=== PATIENT | male | born 1975 | race Caucasian/White ===

== ENCOUNTER 2019-03-02 21:36 | Emergency (ER) | payer OTHER ==
[~2019-03-02] VITALS: Ht 190.5 cm; Wt 104.5 kg
[~2019-03-02 21:36] MED LIST: LOTENSIN 1010 MG/TAB PO; NORCO 325 MG-51 TAB PO; ZOFRAN 4MG T4 MG/TAB PO; ZYLOPRIM 300MG300 MG PO
[2019-03-02 21:48] VITALS: TEMP 98.2
[2019-03-02] MEDS ORDERED: PERCOCET 325 MG1 TA2 PO (22:02)
[2019-03-02] MEDS ORDERED: ZOFRAN ODT8 MG PO (22:03)
[2019-03-02 22:33] LABS: BASO % 0.2 % (0.0-2.0); EOS # 0.1 (0.0-0.7); EOS % 1.1 % (0-4.0); GRAN # 6.3 (1.4-6.5); GRAN % 68.1 % (42.2-75.2); HEMATOCRIT 37.9 % (42.0-52.0); HEMOGLOBIN 13.7 g/dl (13.5-18.0); LYMPH # 2.2 (1.2-3.4); LYMPH % 24.1 % (20.0-51.0); MEAN CELL VOLUME 84 fl (80.0-100.0); MEAN CORPUSCULAR HEMOGLOBIN 30 pg (27.0-31.0); MEAN CORPUSCULAR HGB CONC 36 g/dl (33.0-37.0); MEAN PLATELET VOLUME 9.1 fl (7.4-10.4); MONO # 0.6 (0.1-0.6); MONO % 6.2 % (1.7-9.3); PLATELET COUNT 145 K/mm3 (130-400); RED BLOOD COUNT 4.52 M/mm3 (4.20-5.60); REDCELL DISTRIBUTION WIDTH-CV 12.8 % (11.5-14.5)
[2019-03-02 22:42] LABS: ALBUMIN 4.1 gm/dL (3.5-5.0); BILIRUBIN,TOTAL 0.6 mg/dL (0.0-1.0); CALCIUM 8.8 mg/dL (8.4-10.2); CREATININE, serum 0.79 (0.66-1.25); POTASSIUM 3.9 mmol/L (3.4-5.0); TOTAL PROTEIN 6.8 gm/dL (6.4-8.2)
[2019-03-02] MEDS ORDERED: FLOMAX 0.40.4 MG/CAP PO (23:08)
[2019-03-03 00:11] LABS: COLLECTION METHOD CLEAN CATCH
[2019-03-03 00:54] LABS: MUCOUS Present /lpf; PH 6 (5-8); SQUAMOUS EPITHELIAL None Seen /hpf; URINE APPEARANCE Clear; URINE BACTERIA None Seen /hpf; URINE BILIRUBIN Negative (NEGATIVE); URINE BLOOD 3+ (NEGATIVE); URINE CALCIUM OXALATE CRYSTAL Present /hpf; URINE COLOR Yellow; URINE GLUCOSE Negative (NEGATIVE); URINE KETONE Negative (NEGATIVE); URINE LEUKOCYTE ESTERASE Negative (NEGATIVE); URINE NITRATE Negative (NEGATIVE); URINE PROTEIN(semi-quant) Negative (NEGATIVE); URINE RBC >50 /hpf; URINE UROBILINOGEN Negative (NEGATIVE)
[2019-03-03 01:25] VITALS: BP 133/82; PULSE 93
== END 2019-03-03 01:25 | disposition home or self-care (01) ==
LOC: COL.ER 21:36
PROVIDERS: Emergency Medicine
DX: N20.2 Calculus of kidney with calculus of ureter (principal); I10 Essential (primary) hypertension; Z87.442 Personal history of urinary calculi
CPT/HCPCS: J2270; J2405; J7030

== ENCOUNTER 2019-03-13 08:46 | Observation (INO) | payer OTHER ==
[~2019-03-13] VITALS: Ht 190.5 cm; Wt 99.9 kg
[~2019-03-13 08:46] MED LIST changes: +FLOMAX 0.40.4 MG/CAP PO; +PERCOCET 325 MG1 TA2 PO; +ZOFRAN ODT8 MG PO
[2019-03-13 09:26] LABS: BASO % 0.3 % (0.0-2.0); EOS % 0.6 % (0-4.0); GRAN # 4.6 (1.4-6.5); GRAN % 68.8 % (42.2-75.2); HEMATOCRIT 41.3 % (42.0-52.0); HEMOGLOBIN 14.7 g/dl (13.5-18.0); LYMPH # 1.6 (1.2-3.4); LYMPH % 23.3 % (20.0-51.0); MEAN CELL VOLUME 84 fl (80.0-100.0); MEAN CORPUSCULAR HEMOGLOBIN 30 pg (27.0-31.0); MEAN CORPUSCULAR HGB CONC 36 g/dl (33.0-37.0); MEAN PLATELET VOLUME 9.4 fl (7.4-10.4); MONO # 0.5 (0.1-0.6); MONO % 6.7 % (1.7-9.3); PLATELET COUNT 152 K/mm3 (130-400); RED BLOOD COUNT 4.91 M/mm3 (4.20-5.60); REDCELL DISTRIBUTION WIDTH-CV 12.5 % (11.5-14.5)
[2019-03-13 09:35] LABS: ALBUMIN 4.4 gm/dL (3.5-5.0); BILIRUBIN,TOTAL 0.7 mg/dL (0.0-1.0); CALCIUM 9.4 mg/dL (8.4-10.2); CREATININE, serum 0.81 (0.66-1.25); POTASSIUM 4.3 mmol/L (3.4-5.0); TOTAL PROTEIN 7.1 gm/dL (6.4-8.2)
[2019-03-13 10:45] LABS: COLLECTION METHOD CLEAN CATCH
[2019-03-13 10:56] LABS: MUCOUS Present /lpf; PH 6 (5-8); SQUAMOUS EPITHELIAL None Seen /hpf; URINE APPEARANCE Hazy; URINE BACTERIA Rare /hpf; URINE BILIRUBIN Negative (NEGATIVE); URINE BLOOD 3+ (NEGATIVE); URINE COLOR Yellow; URINE GLUCOSE Negative (NEGATIVE); URINE KETONE Negative (NEGATIVE); URINE LEUKOCYTE ESTERASE Negative (NEGATIVE); URINE NITRATE Negative (NEGATIVE); URINE PROTEIN(semi-quant) Negative (NEGATIVE); URINE RBC >50 /hpf; URINE UROBILINOGEN Negative (NEGATIVE)
[2019-03-13 13:36] VITALS: BP 131/85; PULSE 18; TEMP 98.4
--- NOTE | 2019-03-13 17:20 | NUR ---
Patient resting in bed. He is on his computer working. Patient IVf to [facility]. He is tolerating general diet, denies nausea, Will be NPO at [facility]. His pain has been managed since arrival to floor denies complaints of pain. All admission paperwork complete. page, inital & med rec. He has voided. He is very familar with kidney stones, he has had multipe in the past.
[2019-03-13 17:28] VITALS: BP 129/76; PULSE 76; TEMP 97.8
--- NOTE | 2019-03-13 19:00 | NUR ---
REPORT RECEIVED. 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 ASSESSMENT COMPLETE. VS HAVE BEEN STABLE. DENIES PAIN AT THIS TIME. PLAN OF CARE DISCUSSED FOR NPO AFTER MIDNIGHT. DENIES QUESTIONS AT THIS TIME. ENCOURAGED TO CALL FOR QUESTIONS OR CONCERNS. CALL LIGHT WITHIN REACH. BED IN LOW POSITION/WHEELS LOCKED. WILL MONITOR.
[2019-03-13 19:58] VITALS: BP 123/67; PULSE 76; TEMP 98.4
--- NOTE | 2019-03-13 22:00 | NUR ---
CALLED TO DESK REQUESTING ASSISTANCE FOR HIS IV. ASKS "CAN YOU JUST LET THIS BAG RUN IN FAST LIKE BEFORE, ITS BEEN HANGING ALL DAY JUST DRIPPING?" TEACHING COMPLETED ON IV FLUID RATE. STATES HE WANTS THE PUMP TURNED OFF HE CANT SLEEP WITH IT RUNNING. TEACHING COMPLETED ON NPO AFTER MIDNIGHT. VERBALIZES UNDERSTANDING. I DID TELL HIM WE COULD SWITCH IT OVER TO A DIAL TUBE SO THAT IT WOULD STILL INFUSE AND KEEP HIM HYDRATED. AGREED TO THIS PLAN. RETURNED TO ROOM AT 2245 TO SWITCH OVER TO THE DIAL TUBING AND THE IV PUMP HAD BEEN TURNED OFF. STATED "I CANT SLEEP WITH ALL THE NOISE SO I TURNED IT OFF." DIAL FLOW TUBING AND NEW FLUIDS HUNG. WILL MONITOR.
[2019-03-13 23:57] VITALS: BP 126/70; PULSE 71; TEMP 98.2
[2019-03-14] VITALS (9 sets, daily range): BP systolic 103–166; BP diastolic 61–78; PULSE 56–88; TEMP 97.7–98.3
--- NOTE | 2019-03-14 04:12 | NUR ---
HAS RESTED WELL MOST OF THE NIGHT. DENIES PAIN FOR MY SHIFT. NS RUNNING AT 125ML/HR TO RIGHT AC ON DIAL FLOW. VS HAVE REMAINED STABLE. HAS BEEN NPO SINCE MIDNIGHT. DENIES QUESTIONS OR CONCERNS AT THIS TIME. WILL MONITOR.
--- NOTE | 2019-03-14 07:34 | NUR ---
Patient resting in bed. Consent obtained. Patient set up for a shower. He is ready for the Or. Wanting to get home. Reports minimal sleep over night. Manish moon
--- NOTE | 2019-03-14 10:30 | NUR ---
Initial visit; Patient and thanked Cutter Inspector for looking in on him and offering God's blessings.
--- NOTE | 2019-03-14 11:09 | NUR ---
Patient to Or with Felipe Mcallister Pacu nurse made aware no H&P on chart, even attempted to call urology office.
--- NOTE | 2019-03-14 11:51 | NUR ---
SIMONE student met with patient's as the patient was in surgery. Patient lives in [place] with his wfie (Linda) and 3 kids. Patient's PCP is Dr. Malloy and he uses the [facility]. Patient does not use any assistive devices and is independent with ADLs. Patient's did not think they had completed a DPOA-HC and was not concerned with completing one while here. Patient plans to return home with his family upon discharge. No identified needs at this time.
--- NOTE | 2019-03-14 12:25 | NUR ---
Patient dropped off by anesthesia. Patient a little groggy, his at bedside. Vss on room air. Ice water provided
--- NOTE | 2019-03-14 13:55 | NUR ---
Patient sleeping soundly-Vss. at bedside. He has voided red tinged urine. Will monitor
--- NOTE | 2019-03-14 15:37 | NUR ---
Patient ready for discharge. Patient given all discharge teaching. He has had multiple kidney stones in the past very familiar with stones. Int Dc. He has voided. He tolerated diet. Vss. Patient ambulate out, his taking him home
== END 2019-03-14 15:45 | disposition home or self-care (01) ==
LOC: COL.ER 08:46 → SURG 11:56
PROVIDERS: Nurse Practitioner; ADMIT Urology
DX: N13.2 Hydronephrosis with renal and ureteral calculous obstruction (principal); Z87.442 Personal history of urinary calculi; Z98.52 Vasectomy status; N40.0 Benign prostatic hyperplasia without lower urinary tract symptoms; I10 Essential (primary) hypertension; Z96.649 Presence of unspecified artificial hip joint; Z79.899 Other long term (current) drug therapy; M10.9 Gout, unspecified
CPT/HCPCS: G0378; J1170; J1885; J1956; J2405; J2704; J7030